=== PATIENT | male | born 1960 | race Caucasian/White ===

== ENCOUNTER 2021-09-05 18:15 | Emergency (ER) | payer MEDICARE ==
[~2021-09-05] VITALS: Ht 167.6 cm; Wt 89.1 kg
[~2021-09-05 18:15] MED LIST: DULO30CA52 PO; GABA800T11 PO; HYDR-3972 PO; LACT1CAP26 PO; LIDO700A47 TOP; MECL-231 PO; MONT10TA21 PO; NORT25CA5 PO; PANT20TA18 PO; TIZA4TAB11 PO; [UNRECOGNIZED DRUG - CODE] TOP
[2021-09-05 19:10] VITALS: BP 129/79
[2021-09-05] MEDS ORDERED: bacitracin 15gm ointment TP ONE (21:50)
== END 2021-09-05 22:09 | disposition home or self-care (01) ==
LOC: ER 18:16
DX: S01.112A Laceration without foreign body of left eyelid and periocular area, initial encounter (principal); S09.90XA Unspecified injury of head, initial encounter; E11.9 Type 2 diabetes mellitus without complications; Z88.0 Allergy status to penicillin; Z88.8 Allergy status to other drugs, medicaments and biological substances; Z79.899 Other long term (current) drug therapy; Z79.82 Long term (current) use of aspirin; W19.XXXA Unspecified fall, initial encounter; Y93.89 Activity, other specified; Y92.89 Other specified places as the place of occurrence of the external cause; Y99.8 Other external cause status
CPT/HCPCS: 12011; 12013; 70450; 72125; 99284